=== PATIENT | female | born 1955 ===

== ENCOUNTER → 2017-01-03 14:34 | Outpatient (CLI) | payer BC ==
[2013-10-25 05:51] VITALS: BMI 25.3
[~2017-01-03 14:34] MED LIST: COZAAR50 MG PO; GARLIC1 CAP PO; MULTIPLE VITAMI1 TA1 PO; NATURAL HORMONE PO
== END | disposition home or self-care (01) ==
LOC: D.CT 14:34
DX: R10.9 Unspecified abdominal pain (principal)

== ENCOUNTER → 2017-02-06 12:53 | Outpatient (CLI) | payer BC ==
[2013-10-25 05:51] VITALS: BMI 25.3
== END | disposition home or self-care (01) ==
LOC: D.MAMMO 08:15
DX: Z12.31 Encounter for screening mammogram for malignant neoplasm of breast (principal)